=== PATIENT | male | born 1980 | race Caucasian/White ===

== ENCOUNTER 2017-12-07 07:18 | Emergency (ER) | payer BC ==
[2017-12-07 07:34] VITALS: BP 155/99
--- NOTE | 2017-12-07 08:15 | UC ---
Abdominal Pain Male HPI - HPI Summary HPI Summary: States he has low abdominal discomfort for the past 2-3 days, denies pain. He states a week ago he had epigastric pain for which he started PPI by PCP. Epigastric pain has resolved and he is on day 4 of PPI. He states he usually has 2 BMs a day and so far has had one only with sensation of incomplete emptying. Denies nausea, vomiting, or blood/mucus or tarry stools. Denies dysuria or history of urolithiasis. Denies any pain, more like a discomfort that kept him up all night. - History of Current Complaint Chief Complaint: UCAbdominalPain Stated Complaint: ABD PAIN Time Seen by Provider: 12/07/17 07:28 Hx Obtained From: Patient Onset/Duration: Gradual Onset, Lasting Days Severity Initially: Mild Severity Currently: Moderate Pain Intensity: 0 - denies pain, discomfort is 6/10 Pain Scale Used: 0-10 Numeric Location: Diffuse Radiates: No Character: Unable to describe Aggravating Factor(s): Nothing Alleviating Factor(s): Other - BM Associated Signs And Symptoms: Positive: Negative, Diaphoresis - Risk Factors Testicular Torsion: Negative Cardiac Risk Factors: Negative - Allergies/Home Medications Allergies/Adverse Reactions: Allergies Allergy/AdvReac Type Severity Reaction Status Date / Time No Known Allergies Allergy Verified 12/07/17 07:34 Home Medications: Home Medications Pantoprazole TAB (NF) [Protonix TAB (NF)] 40 mg PO DAILY 12/07/17 [History Confirmed 12/07/17] PMH/Surg Hx/FS Hx/Imm Hx Previously Healthy: Yes - Surgical History Surgical History: None - Social History Alcohol Use: Weekly Alcohol Amount: 2-3 beers a week; used to be 2-3/day Substance Use Type: None Smoking Status (MU): Never Smoked Tobacco Review of Systems Gastrointestinal: Other - tenesmus All Other Systems Reviewed And Are Negative: Yes Physical Exam Triage Information Reviewed: Yes Appearance: Well-Nourished, Obese Vital Signs: Initial Vital Signs Temp 98.4 F 12/07/17 07:27 Pulse 92 12/07/17 07:27 Resp 16 12/07/17 07:27 BP 155/99 12/07/17 07:27 Pulse Ox 98 12/07/17 07:27 Vital Signs Reviewed: Yes Eyes: Positive: Conjunctiva Clear, Other: - eyes are different colors ENT: Positive: Pharynx normal, TMs normal, Uvula midline Neck: Positive: Supple, Nontender, No Lymphadenopathy Respiratory: Positive: Chest non-tender, Lungs clear, Normal breath sounds, No respiratory distress Cardiovascular: Positive: RRR, No Murmur, Pulses Normal, Brisk Capillary Refill Abdomen Description: Positive: Nontender, No Organomegaly, Soft Bowel Sounds: Positive: Present Musculoskeletal Exam: Normal Skin Exam: Normal Abd Pain Male Course/Dx - Course Course Of Treatment: start miralax PRN, continue oral hydration, continue Protonix 30-40 min before a meal daily, f/u PCP - Differential Dx/Clinical Impression Provider Diagnoses: Stool impaction. Constipation Discharge - Discharge Plan Condition: Stable Disposition: HOME Prescriptions: Polyethylene Glycol 3350* [Miralax*] 17 gm PO DAILY PRN #7 packet PRN Reason: Constipation Patient Education Materials: Constipation (DC) Referrals: Emanuel Renner MD [Primary Care Provider] -
--- NOTE | 2017-12-07 08:47 | RAD ---
INDICATION: 1 week of lower abdominal pain COMPARISON: None TECHNIQUE: 2 views the abdomen were obtained. FINDINGS: There are no acute bony or soft tissue abnormalities. The bowel gas pattern is normal. There is a moderate amount of stool overlying the renal shadows. There are no obvious coarse calcifications overlying the expected location of the bilateral collecting systems or ureters. IMPRESSION:Normal KUB.
== END 2017-12-07 09:05 | disposition home or self-care (01) ==
LOC: UCEAST 07:18
DX: K59.00 Constipation, unspecified (principal)
CPT/HCPCS: 74018; 99202; G0463

== ENCOUNTER 2019-09-05 12:05 | Emergency (ER) | payer BC ==
[2019-09-05 12:55] LABS: ABS Eosinophils 0.1 10^3/ul (0-0.6); ABS Lymphocytes 1.9 10^3/ul (1.0-4.8); ABS Monocytes 0.6 10^3/ul (0-0.8); ABS Neutrophils 3.9 10^3/ul (1.5-7.7); Eosinophil % 1.4 %; Hematocrit 44 % (42-52); Hemoglobin 15.1 g/dL (14.0-18.0); Lymphocyte % 28.7 %; Mean Corpuscular HGB Conc 35 g/dL (31-36); Mean Corpuscular Hemoglobin 31 pg (27-31); Mean Corpuscular Volume 91 fL (80-94); Mean Platelet Volume 8.3 fL (7.4-10.4); Nucleated Red Blood Cells % 0.1; Platelet Count 229 10^3/uL (150-450); Red Blood Count 4.81 10^6 /uL (4.18-5.48); Red Cell Distribution Width 14 % (10-15); White Blood Count 6.5 10^3/uL (3.5-10.8)
--- NOTE | 2019-09-05 13:01 | ED ---
HPI Cardiac - HPI Summary HPI Summary: This patient is a 39 year old male presenting to [facility] with a chief complaint of possible cardiac problems since yesterday. He states he started to have left arm pain which progressed to nausea, dizziness, weakness, diaphoresis, SOB, and heart palpitations. He states he has a family Hx of CT. He states this has been accompanied by intermittent chest discomfort in the left anterior sternum. He states he gets heart burn in the epigastric area. He states he mostly attributes his symptoms to stress and anxiety which he says has had a lot of recently, but wanted to make sure he is not having cardiac problems. - History of Current Complaint Chief Complaint: EDChestPainROMI Stated Complaint: CHEST DISCOMFORT,DIZZINESS PER PT Time Seen by Provider: 09/05/19 12:51 Hx Obtained From: Patient Onset/Duration: Started Days Ago Pain Intensity: 3 Pain Scale Used: 0-10 Numeric Chest Pain Location: Left Anterior Chest Pain Radiates To:: Arm - Allergy/Home Medications Allergies/Adverse Reactions: Allergies Allergy/AdvReac Type Severity Reaction Status Date / Time No Known Allergies Allergy Verified 09/05/19 12:18 PMH/Surg Hx/FS Hx/Imm Hx Endocrine/Hematology History: Denies: Hx Diabetes Psychiatric History: Reports: Hx Anxiety Infectious Disease History: No Infectious Disease History: Denies: Traveled Outside the [place] in Last 30 Days - Family History Known Family History: Positive: Cardiac Disease - Social History Alcohol Use: Weekly Alcohol Amount: 2-3 beers a week; used to be 2-3/day Substance Use Type: Reports: None Smoking Status (MU): Never Smoked Tobacco Review of Systems Positive: Skin Diaphoresis Positive: Palpitations, Chest Pain - And epigastric from heart burn Positive: Shortness Of Breath Positive: Nausea Neurological: Other - Dizziness Positive: Weakness Positive: Anxious All Other Systems Reviewed And Are Negative: Yes Physical Exam - Summary Physical Exam Summary: VITAL SIGNS: Reviewed. GENERAL: Patient is a well-developed and nourished MALE who is lying comfortable in the stretcher. Patient is not in any acute respiratory distress. HEAD AND FACE: No signs of trauma. No ecchymosis, hematomas or skull depressions. No sinus tenderness. EYES: PERRLA, EOMI x 2, No injected conjunctiva, no nystagmus. EARS: Hearing grossly intact. Ear canals and tympanic membranes are within normal limits. MOUTH: Oropharynx within normal limits. NECK: Supple, trachea is midline, no adenopathy, no JVD, no carotid bruit, no c- spine tenderness, neck with full ROM. CHEST: Symmetric, no tenderness at palpation. LUNGS: Clear to auscultation bilaterally. No wheezing or crackles. CVS: Regular rate and rhythm, S1 and S2 present, no murmurs or gallops appreciated. ABDOMEN: Soft, non-tender. No signs of distention. No rebound, no guarding, and no masses palpated. Bowel sounds are normal. EXTREMITIES: FROM in all major joints, no edema, no cyanosis or clubbing. NEURO: Alert and oriented x 3. No acute neurological deficits. Speech is normal and follows commands. SKIN: Dry and warm. Triage Information Reviewed: Yes Vital Signs On Initial Exam: Initial Vitals Temp Pulse Resp BP Pulse Ox 99.2 F 118 16 128/81 97 09/05/19 12:16 09/05/19 12:16 09/05/19 12:16 09/05/19 12:16 09/05/19 12:16 Vital Signs Reviewed: Yes Procedures - Sedation Patient Received Moderate/Deep Sedation with Procedure: No Diagnostics - Vital Signs Vital Signs Temp Pulse Resp BP Pulse Ox 09/05/19 12:16 99.2 F 118 16 128/81 97 - Laboratory Lab Results: Lab Results 09/05/19 Range/Units 12:46 WBC 6.5 (3.5-10.8) 10^3/uL RBC 4.81 (4.18-5.48) 10^6 /uL Hgb 15.1 (14.0-18.0) g/dL Hct 44 (42-52) % MCV 91 (80-94) fL MCH 31 (27-31) pg MCHC 35 (31-36) g/dL RDW 14 (10-15) % Plt Count 229 (150-450) 10^3/uL MPV 8.3 (7.4-10.4) fL Neut % (Auto) 59.4 % Lymph % (Auto) 28.7 % Liberty % (Auto) 9.8 % Eos % (Auto) 1.4 % Baso % (Auto) 0.7 % Absolute Neuts (auto) 3.9 (1.5-7.7) 10^3/ul Absolute Lymphs (auto) 1.9 (1.0-4.8) 10^3/ul Absolute Monos (auto) 0.6 (0-0.8) 10^3/ul Absolute Eos (auto) 0.1 (0-0.6) 10^3/ul Absolute Basos (auto) 0.0 (0-0.2) 10^3/ul Absolute Nucleated RBC 0.0 10^3/ul Nucleated RBC % 0.1 Result Diagrams: 09/05/19 12:46 09/05/19 12:46 Lab Statement: Any lab studies that have been ordered have been reviewed, and results considered in the medical decision making process. - Radiology CXR Radiology Interpretation Completed By: Radiologist Summary of Radiographic Findings: No radiographic evidence of cardiopulmonary disease. ED provider has reviewed this report. - EKG 1207 Cardiac Rate: Tachycardia EKG Rhythm: Sinus Rhythm Summary of EKG Findings: No ST elevations. ED Physician has reviewed and interpreted this EKG. Disposition - Course Assessment/Plan: This patient is a 39 year old male presenting to [facility] with a chief complaint of possible cardiac problems since yesterday. He states he started to have left arm pain which progressed to nausea, dizziness, weakness, diaphoresis, SOB, and heart palpitations. He states he has a family Hx of CT. He states this has been accompanied by intermittent chest discomfort in the left anterior sternum. He states he gets heartburn in the epigastric area. He states he mostly attributes his symptoms to stress and anxiety which he says has had a lot of recently, but wanted to make sure he is not having cardiac problems. Blood work without a significant abnormality. 2 troponins 4 hours apart and negative. Chest x-ray impression: Negative for acute pathology. Heart score is equal to 0. Patient reports that all symptoms have resolved. Because the patient has no significant comorbidities and no family history of cardiovascular disease at his age the patient will be discharged home with follow up of PMD. I discussed all the findings and test results with the patient. Patient was instructed to return to the emergency room immediately if any of the symptoms return or worsen. Patient understands and agrees. Plan of care was discussed with the patient and patient understands and agrees. All questions were answered at patient satisfaction. There were no further complaints or concerns. PE before discharge: CVS: S1 and S2 present. No murmurs appreciated. Abdominal exam before discharge: Soft, non-tender. No signs of distention. No rebound no guarding, and no masses palpated. Bowel sounds are normal. Patient is alert and oriented x 3. Patient is hemodynamically stable. - Diagnoses Provider Diagnoses: Atypical chest pain Discharge ED - Sign-Out/Discharge Documenting (check all that apply): Patient Departure - Discharge - Discharge Plan Condition: Stable Disposition: HOME Patient Education Materials: Chest Pain (ED) Referrals: No Primary Care Phys,NOPCP [Primary Care Provider] - Additional Instructions: Return to ED with new or worsening symptoms. - Billing Disposition and Condition Condition: STABLE Disposition: Home - Attestation Statements Document Initiated by Ahmetibe: Yes Documenting Scribe: Alejandro Torres Provider For Whom Rae is Documenting (Include Credential): Hardeep Turcios MD Scribe Attestation: Alejandro Doyle scribed for Hardeep Turcios MD on 09/05/19 at 1831. Scribe Documentation Reviewed: Yes Provider Attestation: The documentation as recorded by the Alejandro jalloh accurately reflects the service I personally performed and the decisions made by Hardeep tanner MD Status of Scribe Document: Viewed
[2019-09-05 13:02] LABS: INR 0.98 (0.82-1.09)
[2019-09-05 13:11] LABS: Albumin 4.4 g/dL (3.2-5.2); Albumin/Globulin Ratio 1.3 (1-3); BUN/Creatinine Ratio 14.6 (8-20); Calcium 9.9 mg/dL (8.6-10.3); EGFR African American 96.8 (>60); Globulin 3.3 g/dL (2-4); Potassium 4.5 mmol/L (3.5-5.0); Total Bilirubin 0.7 mg/dL (0.2-1.0); Total Protein 7.7 g/dL (6.4-8.9)
[2019-09-05 13:21] LABS: C Reactive Protein 2.78 mg/L (<8.01)
[2019-09-05 13:26] LABS: CKMB ng/mL 2.1 ng/mL (0.6-6.3)
[2019-09-05 17:28] VITALS: BP 119/81
== END 2019-09-05 17:15 | disposition home or self-care (01) ==
LOC: ED 12:05
DX: R07.89 Other chest pain (principal); F41.9 Anxiety disorder, unspecified
CPT/HCPCS: 36415; 71046; 80053; 82550; 82553; 84484; 85025; 85610; 86140; 93005; 99283